=== PATIENT | female | born 1980 | race Hispanic/Latino ===

== ENCOUNTER → 2018-02-22 | Outpatient (CLI) | payer OTHER ==
[2018-02-22 10:01] LABS: BASOPHILS % (AUTO) 0.6 % (0.0-5.0); EOSINOPHILS % (AUTO) 1.1 % (0.0-8.0); LYMPHOCYTES % (AUTO) 31.9 % (21.0-51.0); MEAN CORPUSCULAR HEMOGLOBIN 31.8 pg (27.0-33.0); MEAN CORPUSCULAR VOLUME 90.9 fL (79-99); MONOCYTES % (AUTO) 7.1 % (3.0-13.0); NEUTROPHILS % (AUTO) 59.3 % (40.0-77.0); PLATELET COUNT (AUTO) 279 K/uL (130-400); RED BLOOD CELL COUNT(AUTO) 4.41 MIL/uL (4.00-5.50); RED CELL DISTRIBUTION WIDTH 12.8 % (11.0-15.5); WHITE BLOOD COUNT (AUTO) 6.2 K/uL (4.8-10.8)
[2018-02-22 10:07] LABS: HEMOGLOBIN A1C 5.1 % (4.0-6.0)
[2018-02-22 10:29] LABS: ALBUMIN 3.9 g/dL (3.5-5.0); BILIRUBIN,TOTAL 0.4 mg/dL (0.2-1.0); CREATININE 0.7 mg/dL (0.5-1.5); THYROID STIMULATING HORMONE 1.02 uIU/mL (0.36-3.74); TOTAL PROTEIN, SERUM 7.7 g/dL (6.0-8.3)
== END | disposition home or self-care (01) ==
LOC: LAB 09:17
PROVIDERS: ATTEND Family Medicine
DX: Z00.01 Encounter for general adult medical examination with abnormal findings (principal)
CPT/HCPCS: 36415; 80053; 80061; 83036; 84443; 85025

== ENCOUNTER → 2018-08-26 | Outpatient (CLI) | payer OTHER ==
[2018-08-26 08:20] LABS: BASOPHILS % (AUTO) 0.4 % (0.0-5.0); HEMATOCRIT 41.1 % (36-48); LYMPHOCYTES % (AUTO) 22.9 % (21.0-51.0); MEAN CORPUSCULAR HEMOGLOBIN 30.9 pg (27.0-33.0); MEAN CORPUSCULAR HGB CONC 33.3 g/dL (32.0-36.0); MEAN CORPUSCULAR VOLUME 92.8 fL (79-99); MONOCYTES % (AUTO) 7.1 % (3.0-13.0); NEUTROPHILS % (AUTO) 68.6 % (40.0-77.0); PLATELET COUNT (AUTO) 278 K/uL (130-400); RED BLOOD CELL COUNT(AUTO) 4.43 MIL/uL (4.00-5.50)
[2018-08-26 08:40] LABS: ALBUMIN 3.9 g/dL (3.5-5.0); BILIRUBIN,TOTAL 0.4 mg/dL (0.2-1.0); CREATININE 0.6 mg/dL (0.5-1.5); POTASSIUM 3.9 mmol/L (3.5-5.1); THYROID STIMULATING HORMONE 1.82 uIU/mL (0.36-3.74); TOTAL PROTEIN, SERUM 8.1 g/dL (6.0-8.3)
[2018-08-26 09:06] LABS: HEMOGLOBIN A1C 5.1 % (4.0-6.0)
== END | disposition home or self-care (01) ==
LOC: LAB 08:04
PROVIDERS: ATTEND Family Medicine
DX: Z00.00 Encounter for general adult medical examination without abnormal findings (principal)
CPT/HCPCS: 36415; 80053; 80061; 83036; 84443; 85025

== ENCOUNTER 2019-11-03 16:00 | Observation (INO) | payer OTHER ==
[~2019-11-03] VITALS: Ht 160 cm; Wt 81.6 kg
[2019-11-03 16:52] LABS: BASOPHILS % (AUTO) 0.6 % (0.0-5.0); EOSINOPHILS % (AUTO) 1.5 % (0.0-8.0); HEMATOCRIT 37.3 % (36-48); MONOCYTES % (AUTO) 7.8 % (3.0-13.0); NEUTROPHILS % (AUTO) 57.9 % (40.0-77.0); PLATELET COUNT (AUTO) 299 K/uL (130-400); RED CELL DISTRIBUTION WIDTH 11.9 % (11.0-15.5); WHITE BLOOD COUNT (AUTO) 8.2 K/uL (4.8-10.8)
[2019-11-03 16:55] VITALS: BP 123/54
[2019-11-06] VITALS (27 sets, daily range): BP systolic 101–130; BP diastolic 54–73
[2019-11-06] MEDS: CEFAZOLIN SODIUM 1 GM VIAL IVP SCH ×3 (06:00→17:59)
[2019-11-06] MEDS ORDERED: LACTATED RINGERS 1000ML 1,000 ML IV ONE (06:02)
[2019-11-06] MEDS ORDERED: MIDAZOLAM HCL 1 MG/ML 2ML VIAL ONE (06:47)
[2019-11-06] MEDS ORDERED: PROPOFOL 10 MG/ML 20ML VIAL IV ONE (06:47)
[2019-11-06] MEDS ORDERED: ROCURONIUM 10MG/1ML SYR 10 MG/ML ML ONE (06:47)
[2019-11-06] MEDS ORDERED: LIDOCAINE PF 2% 5ML ABBOJECT ONE ×2 (06:47→06:48)
[2019-11-06] MEDS ORDERED: FENTANYL CITRATE PF 50 MCG/1 ML 5ML AMP IV ONE (06:48)
[2019-11-06] MEDS ORDERED: ONDANSETRON HCL 4 MG/2 ML VIAL ONE ×2 (07:14→18:08)
[2019-11-06] MEDS ORDERED: DEXAMETHASONE SOD PHOSPHATE 10MG/ML 1ML VIAL ONE (07:14)
[2019-11-06] MEDS ORDERED: KETOROLAC TROMETHAMINE 30MG/ML ONE (07:37)
[2019-11-06] MEDS ORDERED: NEOSTIGMINE 5MG/5ML SYR IV ONE (07:41)
[2019-11-06] MEDS ORDERED: HEPARIN SODIUM 1000UNIT/ML 10ML VIAL ONE (07:41)
[2019-11-06] MEDS ORDERED: GLYCOPYRROLATE 1 MG/5 ML SYRINGE ONE (07:43)
[2019-11-06] MEDS ORDERED: ESTROGENS,CONJUGATED 0.625 MG/GM 42.5 GM VAG CRM VG ONE (08:11)
[2019-11-06] MEDS ORDERED: MEPERIDINE-PF 25 MG/ML SYG ONE (09:33)
[2019-11-06] MEDS ORDERED: MEPERIDINE-PF 100 MG/ML SYG ONE (12:51)
--- NOTE | 2019-11-06 12:59 | NUR ---
DEMEROL 75MG AND PHENERGAN 25MG GIVEN IM RIGHT GLUTEAL. NO BLOOD ON ASPIRATION. PATIENT TOLERATED INJECTION WELL.
[2019-11-06] MEDS ORDERED: PROMETHAZINE HCL 25 MG/ML 1ML AMPULE IM PRN ×2 (17:30)
[2019-11-06] MEDS ORDERED: MEPERIDINE-PF 100 MG/ML SYG IM PRN (17:30)
[2019-11-06] MEDS ORDERED: ACETAMINOPHEN-CODEINE 300/30MG TAB PO PRN (17:30)
[2019-11-06] MEDS ORDERED: IBUPROFEN 600 MG TABLET PO PRN (17:30)
[2019-11-06] MEDS ORDERED: BISACODYL 10 MG SUPP.RECT RC PRN (17:30)
[2019-11-06] MEDS: DEXTROSE 5%-LACTATED RINGERS 1,000 ML IV PRN (18:00)
[2019-11-06] MEDS ORDERED: ONDANSETRON HCL 4 MG/2 ML VIAL IVP PRN (18:15)
[2019-11-06] MEDS: SIMETHICONE 80 MG TAB.CHEW PO PRN (21:37)
[2019-11-06] MEDS: DOCUSATE SODIUM 100 MG CAP PO PRN (21:37)
[2019-11-07] MEDS: DEXTROSE 5%-LACTATED RINGERS 1,000 ML IV PRN (01:31)
[2019-11-07] MEDS: CEFAZOLIN SODIUM 1 GM VIAL IVP SCH (01:31)
[2019-11-07 03:28] VITALS: BP 122/66
--- NOTE | 2019-11-07 06:00 | NUR ---
ELYSE WILLINGHAM DC'D; CATHETER TIP INTACT. PT INST TO CALL FOR ASSIST BEFORE GETTING OUT OF BED, VERBALIZED UNDERSTANDING.PT DENIED PAIN AND DISCOMFORT. Addendum: 11/07/19 at 0614 by THIERRY PALMA RN RN Amended: Links added.
--- NOTE | 2019-11-07 06:15 | NUR ---
PT. SAT UP IN CHAIR BY JEANINE, WELL TOLERATED. DENIED PAIN AND DISCOMFORT.
[2019-11-07 07:13] LABS: HEMATOCRIT 35.8 % (36-48); MEAN CORPUSCULAR HEMOGLOBIN 30.1 pg (27.0-33.0); MEAN CORPUSCULAR HGB CONC 33.2 g/dL (32.0-36.0); MEAN CORPUSCULAR VOLUME 90.6 fL (79-99); PLATELET COUNT (AUTO) 291 K/uL (130-400); RED BLOOD CELL COUNT(AUTO) 3.95 MIL/uL (4.00-5.50); RED CELL DISTRIBUTION WIDTH 11.9 % (11.0-15.5); WHITE BLOOD COUNT (AUTO) 13.8 K/uL (4.8-10.8)
--- NOTE | 2019-11-07 07:22 | NUR ---
VAGINAL PACK DC'D. NO VAGINAL BLEEDING NOTED.
[2019-11-07 07:47] VITALS: BP 118/71
[2019-11-07] MEDS: SIMETHICONE 80 MG TAB.CHEW PO PRN (08:18)
[2019-11-07] MEDS: DOCUSATE SODIUM 100 MG CAP PO PRN (08:18)
--- NOTE | 2019-11-07 11:00 | NUR ---
verbal and written discharge instructions given, informed of the follow up appointment, prescription given, all questions answered, informed to call the doctor for any concerns, pt voiced understanding to all things discussed. Addendum: 11/07/19 at 1112 by ANYA BETANCOURT RN Amended: Links added.
--- NOTE | 2019-11-07 11:45 | NUR ---
pt is dismiised in stable condition, brought to private car via wheelchair by Victoria rea Addendum: 11/07/19 at 1152 by ANYA BETANCOURT RN Amended: Links added.
== END 2019-11-07 11:45 | disposition home or self-care (01) ==
LOC: DAHIP 11-06 05:57 → WSH 11-06 09:55 → EDSTATUS 11-06 16:00 → MERGE 11-06 16:00
PROVIDERS: ADMIT Obstetrics & Gynecology; ATTEND Obstetrics & Gynecology
DX: N81.2 Incomplete uterovaginal prolapse (principal); N92.0 Excessive and frequent menstruation with regular cycle
CPT/HCPCS: 36415 ×2; 58260; 84703; 85025; 85027; 86850; 86900; 86901; 96374; 96376; A4213; A4215; A4221; A4222; A4223; A4344; A4351; A4600; A4649; A4663; A4930; G0378 ×21; J0690 ×3; J1100; J1644; J1885; J2001 ×2; J2175 ×2; J2250; J2405 ×2; J2704; J2710; J3010; J3490; J7030; J7120

== ENCOUNTER → 2020-08-30 | Outpatient (CLI) | payer OTHER ==
[2020-08-30 09:56] LABS: BASOPHILS % (AUTO) 0.4 % (0.0-5.0); EOSINOPHILS % (AUTO) 1.1 % (0.0-8.0); HEMATOCRIT 43.6 % (36-48); MEAN CORPUSCULAR HEMOGLOBIN 30.1 pg (27.0-33.0); MEAN CORPUSCULAR HGB CONC 33.9 g/dL (32.0-36.0); MEAN CORPUSCULAR VOLUME 88.8 fL (79-99); MONOCYTES % (AUTO) 8.3 % (3.0-13.0); NEUTROPHILS % (AUTO) 61.8 % (40.0-77.0); PLATELET COUNT (AUTO) 333 K/uL (130-400); RED BLOOD CELL COUNT(AUTO) 4.91 MIL/uL (4.00-5.50); RED CELL DISTRIBUTION WIDTH 12.2 % (11.0-15.5); WHITE BLOOD COUNT (AUTO) 8.2 K/uL (4.8-10.8)
[2020-08-30 10:04] LABS: HEMOGLOBIN A1C 5.3 % (4.0-6.0)
[2020-08-30 10:16] LABS: ALBUMIN 4.5 g/dL (3.5-5.0); BILIRUBIN,TOTAL 0.5 mg/dL (0.2-1.0); CREATININE 0.8 mg/dL (0.5-1.5); POTASSIUM 3.7 mmol/L (3.5-5.1); THYROID STIMULATING HORMONE 1.01 uIU/mL (0.36-3.74); TOTAL PROTEIN, SERUM 8.8 g/dL (6.0-8.3)
== END | disposition home or self-care (01) ==
LOC: LAB 08:29
PROVIDERS: ATTEND Family Medicine
DX: Z00.00 Encounter for general adult medical examination without abnormal findings (principal)
CPT/HCPCS: 36415; 80053; 80061; 83036; 84443; 85025; 86003; 86005

== ENCOUNTER → 2021-09-19 | Outpatient (CLI) | payer OTHER | END | disposition home or self-care (01) | LOC: ICE 15:59 | PROVIDERS: ATTEND Internal Medicine Cardiovascular Disease | DX: Z20.822 Contact with and (suspected) exposure to COVID-19 (principal) | CPT/HCPCS: 87635; C9803 ==

== ENCOUNTER 2021-10-29 20:17 | Emergency (ER) | payer OTHER ==
[~2021-10-29] VITALS: Ht 160 cm; Wt 80.3 kg
[2021-10-29] MEDS ORDERED: ALBUTEROL INHALER 90MCG/INH IH PRN (21:00)
[2021-10-29] MEDS ORDERED: AMOX/CLAV 875/125MG TAB PO ONE (21:00)
[2021-10-29] MEDS ORDERED: DEXAMETHASONE 4 MG TAB PO SCH (21:00)
[2021-10-29] MEDS ORDERED: ACETAMINOPHEN WITH CODEINE 1 TAB TAB PO ONE (21:00)
[2021-10-29] MEDS ORDERED: AZITHROMYCIN 250 MG TABLET PO ONE (21:00)
[2021-10-29] MEDS ORDERED: NIRM1TAB PO (21:45)
[2021-10-29] MEDS ORDERED: AMOX1TAB16 PO (21:45)
[2021-10-29] MEDS ORDERED: ALBU8.5H8 IH (21:45)
[2021-10-29] MEDS ORDERED: D-ME1POW16 PO (21:45)
[2021-10-29] MEDS ORDERED: PRED20TA3 PO (21:45)
[2021-10-29 22:09] VITALS: BP 124/76
== END 2021-10-29 22:12 | disposition home or self-care (01) ==
LOC: EDH 20:17
DX: U07.1 COVID-19 (principal); J06.9 Acute upper respiratory infection, unspecified; Z79.899 Other long term (current) drug therapy; Z98.890 Other specified postprocedural states
CPT/HCPCS: 71045; 87635; 87804 ×2; 99284; C9803; J8540